=== PATIENT | female | born 1980 ===

== ENCOUNTER 2020-03-21 10:38 | Outpatient (CLI) | payer OTHER, SELFPAY ==
--- NOTE | ~2020-03-21 | MM_ITS ---
EXAMINATION: MM screening nelli BI w kaylen HISTORY: Screening TECHNIQUE: Craniocaudal and mediolateral oblique 3-D tomosynthesis images were obtained and synthetic 2-D images were generated. CAD analysis was submitted and interpreted. COMPARISON: No prior mammogram is available for comparison at this institution. BREAST PARENCHYMAL COMPOSITION: There are scattered areas of fibroglandular density. FINDINGS: There is no evidence of suspicious mass, calcification, or architectural distortion to sugg est malignancy in either breast. There has been no suspicious interval change. IMPRESSION: 1. No mammographic evidence of malignancy. 2. Recommend routine screening mammography in one year. BI-RADS Category 1: Negative Reviewed, dictated and finalized at location A.
== END 2020-03-21 10:39 | disposition home or self-care (01) ==
PROVIDERS: PCP Student in an Organized Health Care Education/Training Program; Visit Provider Student in an Organized Health Care Education/Training Program
DX: Z12.31 Encounter for screening mammogram for malignant neoplasm of breast (principal)
CPT/HCPCS: 77063; 77067

== ENCOUNTER 2020-07-16 10:08 | Outpatient (CLI) | payer OTHER, SELFPAY ==
--- NOTE | ~2020-07-16 | US_ITS ---
EXAMINATION: US OB <=14 wk fetus w TV EXAM DATE: 07/16/2020 10:50 INDICATION: For dating and viability. 1st trimester. TECHNIQUE: Pelvic obstetrical transabdominal sonogram was performed by a technologist. There are mu ltiple grayscale and Doppler images available for interpretation. There are no earlier studies of th is gestation for comparison. FINDINGS: Uterus measures 10.7 x 6.6 x 7.2 cm. There is an intrauterine gestation sac with mean sac d iameter of 1.8 cm corresponding chest gestational age 6 weeks 4 days. Suspect identification of a tin y pole, however no cardiac activity was identified. 2 contiguous cystic regions, one measuring 2-3 mm and the other measuring about 10 mm. One of these may be an abnormal sized yolk sac. Suspect t iny subchorionic hemorrhage. These are poor prognostic indicators for this gestation. The ovaries are morphologically normal, the right probably has corpus luteal cyst. IMPRESSION: Intrauterine gestation sac with tiny pole identified but could not confirm viabili ty. Small subchorionic hemorrhage and potentially abnormal sized yolk sac. Poor prognostic indicators . Consider 1 week follow-up pelvic sonogram. Reviewed, dictated and finalized at location B. IZE MACHINE OPERATOR IMPRESSION: Intrauterine gestation sac with tiny pole identified but cou ld not confirm viability. Small subchorionic hemorrhage and potentially abnorma l sized yolk sac. Poor prognostic indicators. Consider 1 week follow-up pelvic sonogram.
== END 2020-07-16 10:09 | disposition home or self-care (01) ==
PROVIDERS: Visit Provider Student in an Organized Health Care Education/Training Program
DX: O20.8 Other hemorrhage in early pregnancy (principal); Z3A.01 Less than 8 weeks gestation of pregnancy
CPT/HCPCS: 76801; 76817